=== PATIENT | female | born 2000 | race Caucasian/White ===

== ENCOUNTER 2025-05-30 13:36 | Emergency (ER) | payer MEDICAID ==
[~2025-05-30] VITALS: Ht 152.4 cm; Wt 59.0 kg
[2025-05-30 13:48] VITALS: O2SAT 99
[2025-05-30 14:31] LABS: BASOPHILS % 0.2 % (0.0-2.0); EOSINOPHILS % 1.5 % (0.0-5.0); HEMATOCRIT. 40.9 % (36.0-48.0); HEMOGLOBIN. 13.6 g/dL (12.0-16.0); LYMPHOCYTES % 27.0 % (20.0-50.0); MEAN PLATELET VOLUME 7.4 fl (7.4-10.4); MONOCYTES % 6.6 % (2.0-8.0); NEUTROPHILS % 64.7 % (40.0-76.0); PLATELET 273 x1000/uL (130-400); RED BLOOD CELL COUNT 4.66 mill/uL (4.2-5.4); RED CELL DISTRIBUTION WIDTH 14.1 % (11.6-14.6)
[2025-05-30 14:46] LABS: CREATININE 0.6 mg/dL (0.6-1.0)
[2025-05-30 14:47] LABS: UREA NITROGEN BLOOD 10 mg/dL (9-23)
[2025-05-30 14:48] LABS: ASPARTATE AMINOTRANSFERASE 50 IU/L (<34)
[2025-05-30 14:49] LABS: BILIRUBIN DIRECT 0.1 mg/dL (<=3.0); BILIRUBIN TOTAL 0.4 mg/dL (0.1-1.0); PROTEIN TOTAL 7.5 g/dL (6.0-8.3)
[2025-05-30 15:10] LABS: B-HCG QUANTITATIVE 10054 mIU/mL (<6)
[2025-05-30] MEDS: SODIUM CHLORIDE 0.9% 1,000 ML IV ONE (15:13)
[2025-05-30 15:24] LABS: CLARITY URINE CLEAR (CLEAR); GLUCOSE URINE NEGATIVE (NEGATIVE); KETONES URINE NEGATIVE (NEGATIVE); LEUKOCYTE ESTERASE URINE 3+ (NEGATIVE); NITRITE URINE NEGATIVE (NEGATIVE); OCCULT BLOOD URINE NEGATIVE (NEGATIVE); PH URINE 6.5 (4.5-8.0); PROTEIN URINE NEGATIVE (NEGATIVE); SPECIFIC GRAVITY URINE 1.013 (1.005-1.030); UROBILINOGEN URINE 0.2 E.U./dL (0.2-1.0)
[2025-05-30 15:51] LABS: COLOR URINE STRAW (YELLOW)
[2025-05-30 16:03] LABS: RBC URINE NONE SEEN /hpf (0-2)
[2025-05-30 16:04] LABS: BACTERIA URINE TRACE; SQUAMOUS EPITHELIAL CELL URINE 1+ /lpf (RARE/1+)
[2025-05-30] MEDS ORDERED: CEPH500C2 MT (16:36)
[2025-05-30 16:59] VITALS: BP 123/71; PULSE 84; RESP 17; TEMP 36.6; O2SAT 99
== END 2025-05-30 17:02 | disposition home or self-care (01) ==
LOC: ER 13:36
DX: O26.891 Other specified pregnancy related conditions, first trimester (principal); O23.41 Unspecified infection of urinary tract in pregnancy, first trimester; Z3A.01 Less than 8 weeks gestation of pregnancy
CPT/HCPCS: 99284; 96360; 76801; 80076; 80048; 81003; 81025; 84702; 85025; 86850; 86900; 86901; 36415; 76817; J7030

== ENCOUNTER 2025-09-10 19:57 | Emergency (ER) | payer SELFPAY ==
[~2025-09-10] VITALS: Ht 154.9 cm; Wt 62.0 kg
[~2025-09-10 19:57] MED LIST: CEPH500C2 MT
[2025-09-10 19:59] VITALS: PULSE 96; O2SAT 98
[2025-09-10 20:05] VITALS: BP 112/62; RESP 18; TEMP 36.9; O2SAT 99
[2025-09-10 22:52] LABS: INFLUENZA TYPE A Presumptive Negative (Pres. Neg.)
[2025-09-10 22:53] LABS: INFLUENZA TYPE B Presumptive Negative (Pres. Neg.); RESPIRATORY SYNCYTIAL VIRUS Not Detected (Not Detectd)
[2025-09-10] MEDS ORDERED: ACET-3800 MT (23:10)
== END 2025-09-10 23:29 | disposition home or self-care (01) ==
LOC: ER 19:57
DX: O99.512 Diseases of the respiratory system complicating pregnancy, second trimester (principal); Z3A.00 Weeks of gestation of pregnancy not specified; Z20.822 Contact with and (suspected) exposure to COVID-19
CPT/HCPCS: 87420; 87426; 87804; 99283